=== PATIENT | female | born 1975 | race Hispanic/Latino ===

== ENCOUNTER → 2021-02-28 | Outpatient (CLI) | payer BC ==
[~2021-02-28] MED LIST: GADOTERATE MEGLUMINE 10 MMOL/20 ML VIAL IV ONE
== END | disposition home or self-care (01) ==
LOC: RAH 12:57
PROVIDERS: ATTEND Family Medicine
DX: G44.019 Episodic cluster headache, not intractable (principal); H53.2 Diplopia; J32.0 Chronic maxillary sinusitis; R26.0 Ataxic gait
CPT/HCPCS: 70543; 70553; A9575